=== PATIENT | male | born 1950 | race Caucasian/White ===

== ENCOUNTER 2024-07-03 06:27 | Observation (INO) ==
--- NOTE | 2024-04-05 11:55 | PAT Medication Instructions ---
Medication Instructions Date of Service April 05, 2024 Home Medications Clindamycin 600 mg PO DAILY PRN Dental Procedure Turmeric 700 mg PO QAM acetaminophen 500 mg tablet 1,000 mg PO DAILY PRN Pain apixaban 5 mg tablet (Eliquis) 5 mg PO BID atorvastatin 40 mg tablet 40 mg PO HS calcium carbonate 600 mg-vitamin D3 10 mcg (400 unit) tablet (Calcium 600 + D(3)) 1 tab PO QAM carvedilol 6.25 mg tablet 6.25 mg PO BID cholecalciferol (vitamin D3) 125 mcg (5,000 unit) tablet (Vitamin D3) 125 mcg PO QAM coenzyme Q10 200 mg capsule 200 mg PO QAM fluorouracil 5 % topical cream 1 applic topical DAILY PRN Basal Cell Carcinoma lisinopril 2.5 mg tablet 2.5 mg PO QAM metformin 500 mg tablet,extended release 24 hr 500 mg PO BID multivitamin 1 tab PO QAM polyethylene glycol 400 0.25 % eye drops (Blink Tears) 1 drp ophthalmic (eye) HS potassium chloride 10 mEq capsule,extended release 10 meq PO QAM sildenafil 100 mg tablet 100 mg PO DAILY PRN Sexual Activity sodium chloride 0.65 % nasal mist 2 spray intranasal DAILY PRN Dry Nose spironolactone 25 mg tablet 25 mg PO QAM MEDICATION INSTRUCTIONS: Continue as directed Clindamycin 600 mg PO DAILY PRN Dental Procedure sodium chloride 0.65 % nasal mist 2 spray intranasal DAILY PRN Dry Nose fluorouracil 5 % topical cream 1 applic topical DAILY PRN Basal Cell Carcinoma ( do not apply near surgical area AM of surgery) ASK your prescriber and surgeon apixaban 5 mg tablet (Eliquis) 5 mg PO BID (for spinal anesthesia: will need to hold Eliquis/apixaban at least 72 hours prior to surgery) STOP taking 2 weeks before surgery Turmeric 700 mg PO QAM coenzyme Q10 200 mg capsule 200 mg PO QAM DO NOT take the morning of surgery multivitamin 1 tab PO QAM spironolactone 25 mg tablet 25 mg PO QAM calcium carbonate 600 mg-vitamin D3 10 mcg (400 unit) tablet (Calcium 600 + D(3)) 1 tab PO QAM cholecalciferol (vitamin D3) 125 mcg (5,000 unit) tablet (Vitamin D3) 125 mcg PO QAM lisinopril 2.5 mg tablet 2.5 mg PO QAM sildenafil 100 mg tablet 100 mg PO DAILY PRN Sexual Activity metformin 500 mg tablet,extended release 24 hr 500 mg PO BID potassium chloride 10 mEq capsule,extended release 10 meq PO QAM Take morning of surgery With a small sip of water, OTHERWISE NOTHING TO EAT OR DRINK AFTER MIDNIGHT: carvedilol 6.25 mg tablet 6.25 mg PO BID acetaminophen 500 mg tablet 1,000 mg PO DAILY PRN Pain Take evening before surgery carvedilol 6.25 mg tablet 6.25 mg PO BID acetaminophen 500 mg tablet 1,000 mg PO DAILY PRN Pain polyethylene glycol 400 0.25 % eye drops (Blink Tears) 1 drp ophthalmic (eye) HS atorvastatin 40 mg tablet 40 mg PO HS sildenafil 100 mg tablet 100 mg PO DAILY PRN Sexual Activity metformin 500 mg tablet,extended release 24 hr 500 mg PO BID Other Notes If you have any questions please call us at [phone] or [phone] or [phone] or [phone]
--- NOTE | 2024-04-11 13:34 | Anesthesiology Consultation ---
Date of Service April 11, 2024 Assessment & Plan (1) Encounter for pre-operative examination: - awaiting EKG and most recent cardiology office note from Dr. Kenney [facility] and 04/29/24 Dr. Sunita Holt [facility] pre-operative evaluation. - check BSG am DOS. - Medtronic pacemaker. Chart Review Chart Review: Pending: Refer to Additional Notes / Consult section and Patient seen in Pre Admission Testing Teaching & Discussion Pre-Anesthesia Teaching/Discussion Notes: Instructed NPO after midnight before surgery, except medications with 15 cc of water. Medication instructions provided according to the PAT guidelines. History Surgery Operation Date: 05/22/24 09:05 Proposed Procedures p Revision Right Total Knee Arthroplasty, Extensive Debridement, Implant Exchange - Felipe Ortega MD Height/Weight Height: 5 ft 7 in Weight: 99.1 kg Allergies Allergy/AdvReac Type Severity Reaction Status Date / Time Penicillins AdvReac Severe Unknown Verified 04/03/24 07:27 naproxen AdvReac Intermediate Hematuria Verified 04/03/24 07:27 Medications Home Medications Medication Instructions Recorded Confirmed Last Taken Clindamycin 600 mg PO DAILY PRN Dental 04/03/24 04/03/24 Unknown Procedure Turmeric 700 mg PO QAM 04/03/24 04/03/24 Unknown acetaminophen 500 mg tablet 1,000 mg PO DAILY PRN Pain 04/03/24 04/03/24 Unknown apixaban 5 mg tablet (Eliquis) 5 mg PO BID 04/03/24 04/03/24 Unknown atorvastatin 40 mg tablet 40 mg PO HS 04/03/24 04/03/24 Unknown calcium carbonate 600 mg-vitamin 1 tab PO QAM 04/03/24 04/03/24 Unknown D3 10 mcg (400 unit) tablet (Calcium 600 + D(3)) carvedilol 6.25 mg tablet 6.25 mg PO BID 04/03/24 04/03/24 Unknown cholecalciferol (vitamin D3) 125 125 mcg PO QAM 04/03/24 04/03/24 Unknown mcg (5,000 unit) tablet (Vitamin D3) coenzyme Q10 200 mg capsule 200 mg PO QAM 04/03/24 04/03/24 Unknown fluorouracil 5 % topical cream 1 applic topical DAILY PRN Basal 04/03/24 04/03/24 Unknown Cell Carcinoma lisinopril 2.5 mg tablet 2.5 mg PO QAM 04/03/24 04/03/24 Unknown metformin 500 mg tablet,extended 500 mg PO BID 04/03/24 04/03/24 Unknown release 24 hr multivitamin 1 tab PO QAM 04/03/24 04/03/24 Unknown polyethylene glycol 400 0.25 % eye 1 drp ophthalmic (eye) HS 04/03/24 04/03/24 Unknown drops (Blink Tears) potassium chloride 10 mEq 10 meq PO QAM 04/03/24 04/03/24 Unknown capsule,extended release sildenafil 100 mg tablet 100 mg PO DAILY PRN Sexual Activity 04/03/24 04/03/24 Unknown sodium chloride 0.65 % nasal mist 2 spray intranasal DAILY PRN Dry 04/03/24 04/03/24 Unknown Nose spironolactone 25 mg tablet 25 mg PO QAM 04/03/24 04/03/24 Unknown Past Medical History Medical History (Updated 04/11/24 @ 13:43 by Kiya Shepherd PA-C) Arthritis Basal cell carcinoma Scalp lesion healed with cream. Currently treating lower lip - using fluorouracil cream (if cream unsuccessful will have excision) Diabetes mellitus, type 2 NIDDM Diverticular disease Found on 04/02/24 Colonoscopy - no current issues-denies h/o diverticulitis Hearing loss no hearing aids History of atrial fibrillation 2018 History of cardioversion x5 HTN (hypertension) controlled, stable per pt Hx of congestive heart failure 2018 Hx of epistaxis (~2019) Pacemaker Medtronic - 01/2019 - placed at [facility] - Follows [facility] Cardio Dr. Kenney - Follows a clinical informatics specialist in [place] as well PONV (postoperative nausea and vomiting) denies needing scop patch Sleep apnea [id number] Patient denies h/o stroke, seizures, heart attack, blood clots/DVTs or blood transfusions. Exercise / Class Metabolic Activity II 4-5 Yardwork/Stairs/Walk up hill (ambulates with cane, denies chest disc omfort or shortness of breath with one flight of stairs) Past Surgical History Surgical History History of bilateral knee arthroplasty Hx of arthroscopy of right knee Meniscus Hx of bilateral hip replacements Hx of colonoscopy 03/2024 Hx of tonsillectomy S/P radiofrequency ablation operation for arrhythmia 2018 Past Anesthesia History No Hx of Anesthesia Complications and No Family Hx of Anesthesia Complications History of PONV No Hx of Motion Sickness and History of PONV (denies needing scop patch) Social History Smoking Status: Former smoker Do You Dip or Chew Tobacco: No Smoking End Date: Hx Alcohol Use: Yes Alcohol type: hard liquor alcohol intake frequency: a few times a week Hx Substance Use: No substance use type: does not use Review of Systems Patient denies chest pain, shortness of breath, dyspnea on exertion, reflux, fever, chills, cough, wheezing, or palpitations. Physical Exam Vital Signs Vitals BP 139/84 P 63 TEMP 98.0 SP02 96% on RA RESP 18 Physical Patient resting comfortably in chair in no acute distress, alert and oriented, responding appropriately throughout visit Full cervical extension range of motion without pain TMD 3.5 finger breadths Mallampati Score 2 Dentition: several crowns, denies chipped or loose teeth, caps, implants or bridges Lungs: normal respiratory effort. Good air movement, clear throughout to auscultation, no adventitious breath sounds Cardiac: regular rate and rhythm, no murmurs noted Carotid arteries: negative bruit bilat Lab Results Anesthesia Preop Results Results Anesthesia Widget: WBC 5.36 K/ul (4.8-10.8) 04/11/24 Hgb 13.1 g/dl (14.0-18.0) L 04/11/24 Hct 40.0 % (42.0-52.0) L 04/11/24 Plt 245 K/uL (130-400) 04/11/24 Na 138 mmol/L (136-145) 04/11/24 K 4.4 mmol/L (3.5-5.1) 04/11/24 Cl 102 mmol/L (98-107) 04/11/24 CO2 29 mmol/L (21-32) 04/11/24 BUN 17 mg/dl (6-23) 04/11/24 Creat 0.84 mg/dl (0.6-1.4) 04/11/24 Glucose Level 75 mg/dl (70-99(Fasting)) 04/11/24 PT 11.1 Seconds (9.0-12.0) 04/11/24 PTT 28 Seconds (21-31) 04/11/24 INR 1.0 (0.9-1.1) 04/11/24 HA1c 6.3 % (4.5-5.6) H 04/11/24 Urine Color Yellow 04/11/24 Urine Appearance Clear (Clear) 04/11/24 Urine pH 7.0 (4.5-7.5) 04/11/24 Urine Specific Leivasy 1.018 (1.000-1.030) 04/11/24 Urine Protein Negative (Negative) 04/11/24 Urine Glucose (UA) Negative (Negative) 04/11/24 Urine Ketones Negative (Negative) 04/11/24 Urine Blood Negative (Negative) 04/11/24 Urine Nitrite Negative (Negative) 04/11/24 Urine Bilirubin Negative (Negative) 04/11/24 Urine Urobilinogen Negative (Negative) 04/11/24 Urine Leukocyte Esterase Trace (Negative) H 04/11/24 Urine WBC (Auto) 0-5 /hpf (0-5) 04/11/24 Urine RBC (Auto) 0-2 /hpf (0-2) 04/11/24 Urine Hyaline Casts (Auto) 0-2 /lpf (0-2) 04/11/24 Urine Epithelial Cells (Auto) 0-2 /hpf (0-2) 04/11/24 Urine Bacteria (Auto) None Seen (None Seen) 04/11/24 Blood Type A Positive 04/11/24 Antibody Screen NEGATIVE 04/11/24 Testing Chest X-Ray Date: 04/11/24 No acute chest disease. Echocardiogram Date: 03/11/19 EF 50-54% No LV segmental wall motion abnormalities Mildly dilated RV Moderately reduced RV Grade I diastolic dysfunction No significant valvular pathology Other Testing Cardiac CT 08/01/23 Mild coronary atherosclerosis: plaque with 25-49% stenosis "no further ischemic cardiac work up is needed"
[~2024-07-03 06:27] MED LIST: ALLERGY Noted to ORDERED Medication SCH; BUPIVACAINE 0.25% PF 30 ML VIAL ONE; BUPIVACAINE 0.5 % 5 MG/1 ML PF 10ML VIAL ONE; LR 500ML BOLUS, THEN 15ML/HR IV SCH; LR 60ML/HR IV SCH; ROPIV 0.5% 246mg, Ketorolac 30mg, EPINEPHrine 0.5mg in NSS INFIL SCH; TRANEXAMIC ACID 1,000 MG x 1 **TOPICAL Use Intraop TOP SCH; ceFAZolin 2000MG 2,000 MG/15 ML SYR IV SCH
--- NOTE | 2024-07-03 06:28 | History & Physical Bridge Note ---
Date of Service July 03, 2024 History & Physical Bridge Note I have examined the patient, reviewed the History & Physical and in the interval since the performance of the History & Physical I have noted the following changes of clinical significance: consent and site verified.he understands risks and consequences especially stiffness/infection and possible tuberosity nonunion. no changes noted
[2024-07-03] MEDS: SODIUM CHLORIDE 0.9% 1,000 ML IV SCH (07:10)
[2024-07-03] MEDS ORDERED: fentaNYL citrate PF 100 MCG/2 ML VIAL ONE (07:42)
[2024-07-03] MEDS ORDERED: MIDAZOLAM HCL 1 MG/ML 2ML VIAL ONE (07:42)
[2024-07-03] MEDS ORDERED: LIDOCAINE 2% 2 ML VIAL/AMP(20MG/ML) INFIL ONE (07:43)
[2024-07-03] MEDS ORDERED: PROPOFOL IV EMULSION 10 MG/ML 20 ML VIAL IV ONE (08:33)
[2024-07-03] MEDS ORDERED: ROPIVACAINE 0.5% 5 MG/ML 30 ML VIAL ONE (08:50)
[2024-07-03] MEDS: ceFAZolin 2000MG 2,000 MG/15 ML SYR IV SCH ×2 (09:27→17:05)
[2024-07-03] MEDS: ORTHO JOINT ANESTHETIC ONE (10:13)
[2024-07-03] MEDS: TRANEXAMIC ACID 1,000 MG x 1 **TOPICAL Use Intraop TOP SCH (10:31)
--- NOTE | 2024-07-03 11:17 | Fluoroscopy Report ---
FL knee RT 1 or 2V CLINICAL HISTORY: RIGHT KNEE REVISION WITH SCREWS COMPARISON STUDY: Right knee radiographs 01/08/2024. FLUOROSCOPY TIME: 3 seconds. Jaretr: 0.1016 mGy FLUOROSCOPIC IMAGES: 2 FINDINGS: Fluoroscopy was provided during right knee arthroplasty revision surgery. There are 2 screw s and a cerclage wire within the proximal right tibia. IMPRESSION: Fluoroscopy provided during right knee arthroplasty revision surgery. ACT 112: Negative or not required by law. Electronically signed by: gK Molina M.D. 07/03/2024 11:14 AM
[2024-07-03] MEDS: ROPIV 0.5% 246mg, Ketorolac 30mg, EPINEPHrine 0.5mg in NSS INFIL SCH (11:23)
--- NOTE | 2024-07-03 11:31 | Post Operative Brief Note ---
Immediate Post Op Note Date of Surgery July 03, 2024 Pre & Post Diagnosis Operation Date: 07/03/24 08:50 Pre-Op Diagnosis: Right Knee Arthrofibrosis Status Post Right Total Knee Arthroplasty Post-Op Diagnosis: Right Knee Arthrofibrosis Status Post Right Total Knee Arthroplasty I identified the patient and participated in the time-out.: Yes Procedure Operation Date: 07/03/24 08:50 Actual Procedures p Right Total Knee: Arthrotomy, Extensive Debridement of Arthrofibrosis, Tibial Tuberacle Osteotomy, Poly Exchange(Right) - Felipe Ortega MD Surgeon Felipe Ortega MD Agronomy Instructor Vinh/Ritchie Estimated Blood Loss 100 Findings Consistent with Post-Op Diagnosis Severe arthrofibrosis with heterotopic ossification prerelease range of motion - 10 to 20 degrees (10 degree arc) Fluids See anesthesia report Complications None
--- NOTE | 2024-07-03 11:37 | Operative Report ---
Post Operative Report Pre & Post Diagnosis Operation Date: 07/03/24 08:50 Pre-Op Diagnosis: Right Knee Arthrofibrosis Status Post Right Total Knee Arthroplasty Post-Op Diagnosis: Right Knee Arthrofibrosis Status Post Right Total Knee Arthroplasty I identified the patient and participated in the time-out.: Yes Procedure Operation Date: 07/03/24 08:50 Actual Procedures p Right Total Knee: Arthrotomy, Extensive Debridement of Arthrofibrosis, Tibial Tuberacle Osteotomy, Poly Exchange(Right) - Felipe Ortega MD Surgeon Felipe Ortega MD Structural Shop Helper Vinh/Ritchie Estimated Blood Loss 100 Findings Consistent with Post-Op Diagnosis Specimens Soft tissue right knee Description of Procedure Patient was brought to the operative suite where he underwent anesthesia. The right lower extremity was prepped and draped in the usual sterile fashion. Surgical timeout was then performed. Patient underwent a right knee arthrotomy, extensive debridement of arthrofibrosis, tibial tubercle osteotomy, poly exchange. Please see Dr. Ortega's operative report for full details. I was present and assisted with patient positioning, limb positioning, soft tissue retraction, hemostasis, wound closure, postoperative dressing placement. The patient was awakened and taken to the recovery room in stable condition. I attest to the content of the Intraoperative Record and any orders documented therein. Any exceptions are noted below.
--- NOTE | 2024-07-03 11:37 | Operative Report ---
Post Operative Report Pre & Post Diagnosis Operation Date: 07/03/24 08:50 Pre-Op Diagnosis: Right Knee Arthrofibrosis Status Post Right Total Knee Arthroplasty Post-Op Diagnosis: Right Knee Arthrofibrosis Status Post Right Total Knee Arthroplasty I identified the patient and participated in the time-out.: Yes Procedure Operation Date: 07/03/24 08:50 Actual Procedures p Right Total Knee: Arthrotomy, Extensive Debridement of Arthrofibrosis, Tibial Tuberacle Osteotomy, Poly Exchange(Right) - Felipe Ortega MD Surgeon Felipe Ortega MD Staff Nurse Vinh/Ritchie Estimated Blood Loss 100 Findings Consistent with Post-Op Diagnosis Severe arthrofibrosis with range of motion of about a 10 degree arc from extent around 20 degrees no well cement bone interface loosening Fluids See anesthesia report Specimens Soft tissue debridement Drains None Complications None Indications Severe restrictive range of motion Description of Procedure After the patient was appropriate endophyte site verify consent verified antibiotics confirmed has been given the right lower extremity was prepped and draped in his routine fashion. Situation patient had this implant put in years ago was had trouble with knee range of motion ever since. His infection workup was negative. This included C-reactive protein erythrocyte sedimentation rate and fluid. The old incision was utilized and extended distally to include a tibial tubercle osteotomy. Exam under anesthesia revealed a range of motion of 0-10-20. In essence he had a 10 degree arc range of motion with a 10 degree flexion contracture. He had difficulty with activities of daily living. Options were discussed with him including tubercle osteotomy extensive debridement and soft tissue releases with potential for revision versus just a poly exchange since he had a constrained poly placed. Once the incision was made and the joint was open there was essentially no medial or lateral gutter there was no suprapatellar pouch everything was scarred shut this required extensive release and debridement with care taken to protect the extensor mechanism patella was able to be mobilized somewhat but the knee could still not be flexed more than 30 degrees so an osteotomy of the tibial tubercle was performed once this was carried out it was even in ED everted laterally further soft tissue release along the gutters was then carried out and then the knee could be manipulated 210 degrees. The interfaces around all the implants were then cleaned up and there was no loosening on the femur or the tibia. The osteotomy was carried out with a large saw with the length of the osteophyte at the knee being about 10 cm from proximal to distal and proximately centimeter thick. There was no exposed stem on the tibia with the osteotomy. There was a proximal shelf. The patella was completely covered with fibrous tissue this was carefully excised. The extensor mechanism was now much more mobile. Once the knee was able to be flexed 210 degrees the poly was removed and everything was irrigated further release was carried posteriorly to offer better extension care taken to protect the neurovascular pedicle. This allowed everything to be put through a range of motion of near 0 to near 110 degrees. The wound was then soaked in Betadine for several minutes then soaked in TXA for several minutes then irrigated the permanent poly was then placed as the exchange it was a less constrained poly. The knee was then closed at 40 degrees of flexion with #2 Vicryl 2-0 Vicryl and standstill clips. When the knee was closed he had a range of motion of 5 to roughly 85-90. He obviously will require hard aggressive and diligent physical therapy to maintain his range of motion. This was discussed with him preop and also with his on the phone postop. Summary of implants the osteotomy was fixed with two 4.5 cortical screws with light technique 48 proximally 44 distally and then 3 wires placed proximally 2 20-gauge 1 24-gauge allowing anatomic fixation and stable fixation of the osteotomy. Should be mentioned that the osteotomy had a proximal shell so it should not migrate proximally. The extensor mechanism was markedly improved in its mobility be placed medially laterally and proximal proximally and distally. Summary of implants 4.5 cortical screws like technique 48 mm 44 mm stainless steel wire 2 20-gauge wires 1 24-gauge wire through transosseous tunnels and then poly exchange [facility] PS tibial bearing [employer] Platform knee system 10 mm thick 71/75. contacted post procedure. I attest to the content of the Intraoperative Record and any orders documented therein. Any exceptions are noted below.
--- NOTE | 2024-07-03 11:38 | Orthopedic Progress Note ---
Date of Service July 03, 2024 Orthopedic Progress Note Patient tolerated total knee revision excision of extensive arthrofibrosis with poly exchange. Denies chest pain shortness of breath fever chills nausea vomiting headache. Intraoperative fluoroscopy reveals excellent positioning of the osteotomy. This point in time we will be kept overnight for IV antibiotics since he has multiple joint replacements and an aggressive physical therapy. He can be touchdown weightbearing with the knee immobilizer on. He can take the knee immobilizer off to do range of motion to tolerance. Initiate DVT PE prophylaxis tomorrow.
--- NOTE | 2024-07-03 11:39 | Discharge Summary ---
Date of Service July 04, 2024 Admission HPI Per Admitting Provider Extensive arthrofibrosis right knee status post knee replacement years ago done elsewhere Principal Diagnosis Extensive arthrofibrosis right knee Discharge Data Allergies Allergy/AdvReac Type Severity Reaction Status Date / Time Penicillins AdvReac Severe Unknown Verified 07/03/24 06:58 naproxen AdvReac Intermediate Hematuria Verified 07/03/24 06:58 Vaccinations None Consultations None Procedures Performed Operation Date: 07/03/24 08:50 Actual Procedures p Right Total Knee: Arthrotomy, Extensive Debridement of Arthrofibrosis, Tibial Tuberacle Osteotomy, Poly Exchange(Right) - Felipe Ortega MD Ordered Studies 07/03/24 05:00 US - OR guided needle placemen Routine 07/03/24 10:30 FL knee RT 1 or 2V Routine Hospital Course (1) Status post osteotomy of right tibial tuberosity: Total Time Total Time Spent Total Time Spent (In Minutes): 5 Discharge Plan Discharge Items Patient Disposition: Home - Self-Care Reason For Visit: POST OP RIGHT KNEE DEBRIDEMENT; POLY EXCHANGE Discharge Diagnosis: Extensive debridement arthrofibrosis tubercle osteotomy poly exchange right total knee replacement Activity: Per Instructions section Lifting: Wait until after follow-up appointment Bathing: Keep incision dry Sexual Activity: Wait until after follow-up appointment Exercise/Sports: Wait until after follow-up appointment Driving/Machine Use: no driving x 6 weeks Weightbearing: Right partial Weightbearing Comment: with knee immobilizer on Non-emergency contact: Surgeon Call non-emergency contact if: your temperature is above 101.5, your wound has increased redness, your wound has increased drainage and your wound pain has increased Follow-up/Referrals: PCP,NO [Physician] - Diet: Regular Addtl Attending Provider Instructions: Patient needs Prednisone 40 mg daily x 7 days at discharge Will need 7 days of oral antibiotics as well. Pending Studies at Discharge: Yes (bone pathology) Stand-Alone Forms: My [facility] [email or web address] Medications and DC Order Prescriptions: No Action multivitamin Tablet 1 tab PO QAM atorvastatin 40 mg Tablet 40 mg PO HS potassium chloride 10 mEq Capsule, Extended Release 10 meq PO QAM carvedilol 6.25 mg Tablet 6.25 mg PO BID Rx Instructions: must administer with a meal/food fluorouracil 5 % Cream 1 applic TOPICAL DAILY PRN (Reason: Basal Cell Carcinoma) acetaminophen 500 mg Tablet 1,000 mg PO DAILY PRN (Reason: Pain) sildenafil [Viagra] 100 mg Tablet 100 mg PO DAILY PRN (Reason: Sexual Activity) Rx Instructions: administer 30 minutes to 4 hours before activity spironolactone 25 mg Tablet 25 mg PO QAM metformin 500 mg Tablet Extended Release 24 Hr 500 mg PO BID lisinopril 2.5 mg Tablet 2.5 mg PO QAM sodium chloride 0.65 % Mist 2 spray INTRANASAL DAILY PRN (Reason: Dry Nose) coenzyme Q10 200 mg Capsule 200 mg PO QAM calcium carbonate-vitamin D3 [Calcium 600 + D(3)] 600 mg-10 mcg (400 unit) Tablet 1 tab PO QAM cholecalciferol (vitamin D3) [Vitamin D3] 125 mcg (5,000 unit) Tablet 125 mcg PO QAM Eliquis 5 mg Tablet 5 mg PO BID Blink Tears 0.25 % Drops 1 drp OPHTHALMIC (EYE) HS Clindamycin 600 mg PO DAILY PRN (Reason: Dental Procedure) Turmeric 700 mg PO QAM Discharge Orders: Discharge Order (Routine); Ordered 07/04/24 Ordered By: Felipe Ortega Admission Data Admit Date/Time: 07/03/24 11:45 Attending Provider: Felipe Ortega Admit Provider: Felipe Ortega Primary Care Provider: Sunita Holt
[2024-07-03] MEDS ORDERED: VANCOMYCIN CONSULT ACTIVE PRN (11:46)
--- NOTE | 2024-07-03 11:57 | XRay Report ---
XR knee RT 1 or 2V routine HISTORY: 73 years-old Male S/P arthrofibrosis dwebridement with poly exchange COMPARISON: 01/08/2024 TECHNIQUE: 2 views of the right knee FINDINGS: Total joint arthroplasty with patellar resurfacing. Anterior midline skin sheri are present with ex pected postoperative soft tissue swelling and deep tissue air. There are 2 cannulated screws along wi th cerclage wires of the proximal tibia. Arterial calcifications. IMPRESSION: Satisfactory alignment of the total joint arthroplasty. ACT 112: Negative or not required by law. The above report was generated using voice recognition software. It may contain grammatical, syntax o r spelling errors. Electronically signed by: John Alejandro M.D. 07/03/2024 11:56 AM
[2024-07-03] MEDS: VANCOMYCIN HCL 2,000 MG in SODIUM CHLORIDE 0.9% 500 ML IV ONE (12:18)
[2024-07-03] MEDS ORDERED: NALOXONE HCL 0.4 MG/1 ML VIAL/CARP IV PRN (13:13)
[2024-07-03] MEDS ORDERED: bisacodyL 10 MG SUPP PR PRN (13:13)
[2024-07-03] MEDS ORDERED: MAGNESIUM HYDROXIDE SUSP 30 ML UDC PO PRN (13:13)
[2024-07-03] MEDS ORDERED: HYDROmorphone INJ 0.5 MG/0.5 ML SYR IV PRN (13:13)
[2024-07-03] MEDS ORDERED: METOCLOPRAMIDE HCL INJ 5 MG/ML 2 ML VIAL IV PRN (13:13)
[2024-07-03] MEDS ORDERED: TAMSULOSIN HCL 0.4 MG CAP PO PRN (13:13)
[2024-07-03] MEDS ORDERED: ONDANSETRON INJ 2 MG/ML 2 ML VIAL IV PRN (13:13)
[2024-07-03] MEDS ORDERED: HYDROmorphone INJ 1 MG/ML SYRINGE IV PRN (13:13)
[2024-07-03] MEDS: ACETAMINOPHEN 500 MG TAB PO SCH (14:15)
--- NOTE | 2024-07-03 14:34 | Orthopedic Progress Note ---
Date of Service July 03, 2024 Assessment & Plan Admission and Anticipated Discharge Date Admission Date: July 03, 2024 Orthopedic Progress Note Postop check patient on the floor. He is eating and drinking well denies nausea vomiting chest pain shortness of breath fever or chills. Vital signs are stable he is afebrile. Neurovascular check from sciatic nerve is intact. Can do a straight leg raise. His leg is much straighter than it was preoperatively. Encouraged him to start doing his flexion exercises. They both feel tight and will be uncomfortable but he has to push through it. He can get close to 90 degrees of flexion if he works out it. He will be protected weightbearing with the knee immobilizer on for gait. He does not need to be on any other time. Will start his anticoagulation tomorrow. Continue his IV antibiotics through tomorrow.
--- NOTE | 2024-07-03 15:27 | Anesthesiology Progress Note ---
Date of Service July 03, 2024 Anesthesia Post Procedure Vital Signs Vital Signs: Temp Pulse Pulse Resp BP Pulse Ox O2 Del Method 07/03/24 15:07 36.6 C 64 16 148/83 H 98 Room Air 07/03/24 14:15 36.5 C 60 18 170/94 H 98 Room Air 07/03/24 13:40 64 16 108/79 98 Room Air 07/03/24 13:15 36.4 C L 61 18 131/84 97 Room Air 07/03/24 12:45 73 14 126/82 98 Room Air 07/03/24 12:32 36.5 C 63 12 118/75 98 Room Air 07/03/24 12:25 60 18 124/71 98 Room Air 07/03/24 12:15 70 16 122/78 97 Room Air 07/03/24 12:05 62 12 104/66 97 Room Air 07/03/24 11:55 62 13 125/74 100 Oxymask 07/03/24 11:45 61 15 119/70 99 Oxymask 07/03/24 11:35 36.2 C L 62 15 103/69 98 Oxymask 07/03/24 07:02 36.5 C 68 18 148/87 H 98 Room Air O2 Flow Rate 07/03/24 15:07 07/03/24 14:15 07/03/24 13:40 07/03/24 13:15 07/03/24 12:45 07/03/24 12:32 07/03/24 12:25 07/03/24 12:15 07/03/24 12:05 07/03/24 11:55 2 07/03/24 11:45 4 07/03/24 11:35 6 07/03/24 07:02 Transfer of Care Handoff Completed per policy Notes Mental Status: alert / awake / arousable and participated in evaluation Nausea / Vomiting: adequately controlled Pain: adequately controlled Airway Patency, RR, SpO2: stable & adequate BP & HR: stable & adequate Hydration State: stable & adequate Neuraxial Anesthesia: was administered and sensory block is resolving Anesthetic Complications: no major complications apparent and Pt Satisfied with anesthetic care
[2024-07-03] MEDS: KETOROLAC TROMETHAMINE 15 MG/ML VIAL IV SCH (16:08)
[2024-07-03] MEDS: metFORMIN HCL ER 500 MG TABCR PO SCH (16:09)
[2024-07-03] MEDS: oxyCODONE HCL IR 5 MG TAB (IMMEDIATE RELEASE) PO PRN (17:05)
[2024-07-03 20:28] VITALS: RESP 18
[2024-07-03] MEDS: ARTIFICIAL TEARS OP SCH (21:01)
[2024-07-03] MEDS: carvediloL 6.25 MG TAB PO SCH (21:02)
[2024-07-03] MEDS: SENNA 8.6 MG TAB PO SCH (21:02)
[2024-07-03] MEDS: DOCUSATE SODIUM 100 MG CAP PO SCH (21:02)
[2024-07-03] MEDS: ATORVASTATIN 40 MG TAB PO SCH (21:03)
[2024-07-04 06:20] LABS: Hematocrit (blood only) 33.9 % (42.0-52.0); Hemoglobin 11.1 g/dl (14.0-18.0); Mean Corpuscular Hemoglobin 28.8 pg (25.0-34.0); Mean Corpuscular Hgb Conc 32.7 g/dL (32.0-36.0); Mean Corpuscular Volume 88.1 fL (80.0-100.0); Mean Platelet Volume 10.4 fL (9.4-12.4); Platelet Count 185 K/uL (130-400); RDW Coefficient of Variation 13.5 % (11.5-14.5); RDW Standard Deviation 43.4 fL (36.4-46.3); Red Blood Count 3.85 M/uL (4.70-6.10); White Blood Count 6.14 K/ul (4.8-10.8)
[2024-07-04 06:39] LABS: Calcium 8.3 mg/dl (8.6-10.3); Creatinine Clr Calc Pharmacy 82.6 ml/min; Potassium 4.3 mmol/L (3.5-5.1)
--- NOTE | 2024-07-04 06:47 | Orthopedic Progress Note ---
Date of Service July 04, 2024 Assessment & Plan Admission and Anticipated Discharge Date Admission Date: July 03, 2024 Orthopedic Progress Note Doing well no chest pain SOB nausea vomiting.Eating well voiding etc. VSS . Femoral sciatic nerve intact. calves non tender .Wound dressing CDI. HCT stable . Doing well. Discharge today after PT and dressing change. Knee Immobilizer for all gait activities PWB right leg .Start eliquis today. Oral antibiotics /steroid for 1 week.
[2024-07-04] MEDS: dexAMETHasone 4 MG TAB PO SCH (07:14)
[2024-07-04] MEDS: CHOLECALCIFEROL 125 MCG (5,000 UNITS) TAB PO SCH (07:14)
[2024-07-04] MEDS: MULTIVITAMIN TAB PO SCH (07:15)
[2024-07-04] MEDS: lisinopril 2.5 MG TAB PO SCH (07:15)
[2024-07-04] MEDS: CALCIUM 600MG + VIT D 400 IU TAB PO SCH (07:15)
[2024-07-04] MEDS: SPIRONOLACTONE 25 MG TAB PO SCH (07:16)
[2024-07-04 07:44] VITALS: BP 139/79; PULSE 68; TEMP 98.6; O2SAT 96
[2024-07-04] MEDS ORDERED: NON-FORMULARY MEDICATION (Multivitamin Tablet) PO SCH (09:00)
[2024-07-04] MEDS ORDERED: NON-FORMULARY MEDICATION (Coenzyme Q10 200 mg Capsule) PO SCH (09:00)
--- NOTE | 2024-07-04 09:21 | Orthopedic Progress Note ---
Date of Service July 04, 2024 Assessment & Plan (1) Status post osteotomy of right tibial tuberosity: Plan: The patient was educated regarding today's findings. Conservative care measures were discussed. His dressings were changed today by me. A new pressure dressing was applied along with his Parvez stocking. He will keep this in place through the weekend. It can be changed on Monday as needed for soiling. Importance of keeping a pressure dressing in place was discussed. He is starting outpatient PT tomorrow. He is to maintain partial weightbearing using his walker and must have his knee immobilizer on when out of bed. He may take it off when he is in bed or lying down to work on range of motion. Max flexion of 90 degrees until cleared by Dr. Ortega. Ice the knee frequently along with elevation to control swelling. Prescriptions for Percocet, Keflex, and prednisone were sent to his pharmacy in [place]. Keflex and prednisone are for 7 days. He already takes Eliquis 5 mg twice daily and will resume that today. Follow-up in the office in 2 weeks as scheduled for staple removal. He is aware that only part of the sheri may be removed at that time. It will depend on wound healing. Call with any other concerns. Admission and Anticipated Discharge Date Admission Date: July 03, 2024 Subjective This 73-year-old male is seen today in his room. He is 1 day status post right knee arthrotomy, extensive debridement, poly exchange, and tibial tubercle osteotomy. His is present this morning. He states he is doing well. His pain has been controlled. He denies any chest pain, shortness of breath, nausea, vomiting, or abdominal pain. He feels ready to go home. No additional complaints. He states he has been doing his exercises in bed and is waiting for PT. Review of Systems Review of Systems: Unchanged from yesterday. Physical Exam Physical Exam: General: Well-developed, well-nourished, elderly male, in no acute distress. Laying in bed. Alert and oriented. Conversive. Skin: Warm dry with good turgor. No rashes. He has a postsurgical dressing in place on the right leg. Upon removal, there is a moderate mount of dried blood distally. Nothing proximally. [place] are intact. Wound edges are well- approximated. No erythema or warmth. Expected postoperative ecchymosis and edema. Musculoskeletal: The patient has intact motor function of his ankle and toes. He is able to reach almost full terminal extension. He was able to dangle his leg on the side of the bed to 70 degrees. No hip pain with logrolling, flexion, or extension. Neurologic: Gross sensation is intact across the right leg by soft touch. Peripheral pulses are 2+. Results & Data Vital Signs (Past 12 Hours) Vital Signs Temp Pulse Resp BP Pulse Ox O2 Del Method 07/04/24 07:43 37 C 68 18 139/79 96 Room Air Laboratory Results CBC obtained this morning shows a white count of 6.14. H&H of 11.1 and 33.9. Platelets 185,000. PRP shows sodium 140, potassium 4.3, chloride 110, BUN of 22 with creatinine 0.88. Glucose this morning is 138.
[2024-07-04] MEDS: POTASSIUM CHLORIDE 10 MEQ TABCR PO SCH (09:56)
[2024-07-04] MEDS ORDERED: APIXABAN 5 MG TABLET PO SCH (12:00)
== END 2024-07-04 11:01 | disposition home or self-care (01) ==
LOC: ASU 06:27 → 3E 06:27